=== PATIENT | female | born 1975 | race Caucasian/White ===

== ENCOUNTER 2018-04-15 17:20 | Emergency (ER) | payer BC, SELFPAY ==
[2018-04-15 17:23] VITALS: BMI 26.9
[2018-04-15 17:30] VITALS: BP 129/101; PULSE 86; RESP 19; TEMP 36.6; O2SAT 100
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
[2018-04-15] MEDS: HYDROCODONE/ACET 5/325 TABLET 1 TAB PO (18:24)
--- NOTE | 2018-04-15 18:25 | PC.NURSE ---
last solid meal, had a protein bar at 330pm.
[2018-04-15 18:34] VITALS: BP 130/83; PULSE 74; RESP 19; O2SAT 100
--- NOTE | 2018-04-15 19:12 | DI.RAD.S_ITS ---
PROCEDURE: XR SHOULDER LT 1V INDICATIONS: trans axillary view requested by rads TECHNIQUE: 1 views of the shoulder were acquired. COMPARISON: [facility], CR, XR SHOULDER LT MIN 2V, 04/15/2018, 18:10. FINDINGS: Bones: There is posterior subluxation of humeral head at the glenohumeral joint. No suspicious bony lesions. Visualized ribs appear intact. Soft tissues: No suspicious soft tissue calcifications. IMPRESSION: Posterior subluxation of humeral head. Nonurgent MRI shoulder arthrogram would be helpful to evaluate posterior labral injury and glenohumeral ligament injury. Dictated by: Chyna Coates M.D. on 04/15/2018 at 20:09 Approved by: Chyna Coates M.D. on 04/15/2018 at 20:10
[2018-04-15] MEDS: MORPHINE 4 MG/ML INJ IM (19:22)
--- NOTE | 2018-04-15 20:03 | DI.RAD.S_ITS ---
PROCEDURE: XR SHOULDER LT MIN 2V INDICATIONS: post reduction TECHNIQUE: 3 views of the shoulder were acquired. COMPARISON: [facility], CR, XR SHOULDER LT 1V, 04/15/2018, 19:18. [facility], CR, XR SHOULDER LT MIN 2V, 04/15/2018, 18:10. FINDINGS: Bones: No fractures. Posterior subluxation of the humeral head is reduced. No suspicious bony lesions. Visualized ribs appear intact. Soft tissues: No suspicious soft tissue calcifications. IMPRESSION: Posterior subluxation of humeral head is reduced. In the setting of shoulder instability, labral injury is highly suspected. A nonurgent MR border arthrogram is suggested. Dictated by: Chyna Coates M.D. on 04/15/2018 at 20:58 Approved by: Chyna Coates M.D. on 04/15/2018 at 21:00
[2018-04-15 21:19] VITALS: BP 130/83; PULSE 59; RESP 18; O2SAT 99
[2018-04-15 21:20] VITALS: BP 125/67; PULSE 70; O2SAT 98
== END 2018-04-15 21:22 | disposition home or self-care (01) ==
PROVIDERS: Emergency Provider Emergency Medicine; PCP Nurse Practitioner Family
DX: S43.022A Posterior subluxation of left humerus, initial encounter (principal); V18.2XXA Unspecified pedal cyclist injured in noncollision transport accident in nontraffic accident, initial encounter
CPT/HCPCS: 73020; 73030; 96372; 99283; J2270

== ENCOUNTER → 2018-09-09 10:40 | Outpatient (CLI) | payer BC, SELFPAY ==
--- NOTE | 2018-09-09 | DI.MG.S_ITS ---
BILATERAL DIGITAL SCREENING MAMMOGRAM 3D/2D WITH CAD: 09/09/2018 CLINICAL: Routine screening. Family history of breast cancer. Comparison is made to exam dated: 03/14/2016 mammogram - [facility]. The tissue of both breasts is heterogeneously dense. This may lower the sensitivity of mammography. Current study was also evaluated with a Computer Aided Detection (CAD) system. No significant masses, calcifications, or other findings are seen in either breast. There has been no significant interval change. IMPRESSION: NEGATIVE There is no mammographic evidence of malignancy. A 1 year screening mammogram is recommended. This exam was interpreted at Station ID: [id number]. NOTE: For mammograms, a report in lay terms will be sent to the patient. Approximately 15% of breast malignancies will not be visualized mammographically. In the management of a palpable breast mass, a negative mammogram must not discourage biopsy of a clinically suspicious lesion. Electronically Signed By: Kamilla cordero/maria a:09/09/2018 12:20:56 letter sent: Normal Exam ACR BI-RADS Category 1: Negative [id number]
== END ==
PROVIDERS: PCP Nurse Practitioner Family; Visit Provider Nurse Practitioner Family
DX: Z12.31 Encounter for screening mammogram for malignant neoplasm of breast (principal); Z80.3 Family history of malignant neoplasm of breast
CPT/HCPCS: 77063; 77067

== ENCOUNTER → 2019-09-30 17:35 | Outpatient (CLI) | payer BC, SELFPAY ==
--- NOTE | 2019-09-30 | DI.MG.S_ITS ---
BILATERAL DIGITAL SCREENING MAMMOGRAM 3D/2D WITH CAD: 09/30/2019 CLINICAL: Routine screening. Family history of breast cancer. Comparison is made to exams dated: 09/09/2018 mammogram and 03/14/2016 mammogram - [facility]. The tissue of both breasts is heterogeneously dense. This may lower the sensitivity of mammography. Current study was also evaluated with a Computer Aided Detection (CAD) system. No significant masses, calcifications, or other findings are seen in either breast. There has been no significant interval change. IMPRESSION: NEGATIVE There is no mammographic evidence of malignancy. A 1 year screening mammogram is recommended. This exam was interpreted at Station ID: [id number]. NOTE: For mammograms, a report in lay terms will be sent to the patient. Approximately 15% of breast malignancies will not be visualized mammographically. In the management of a palpable breast mass, a negative mammogram must not discourage biopsy of a clinically suspicious lesion. Electronically Signed By: Александр joshi/maria a:10/01/2019 07:57:43 letter sent: Normal Exam ACR BI-RADS Category 1: Negative [id number]
== END ==
PROVIDERS: PCP Internal Medicine; Referring Provider Internal Medicine; Visit Provider Internal Medicine
DX: Z12.31 Encounter for screening mammogram for malignant neoplasm of breast (principal); Z80.3 Family history of malignant neoplasm of breast
CPT/HCPCS: 77063; 77067

== ENCOUNTER 2021-05-18 08:24 | Emergency (ER) | payer BC, SELFPAY ==
[2021-05-18 08:45] VITALS: BP 169/80; PULSE 83; RESP 18; TEMP 36.8; O2SAT 97; BMI 28.3
--- NOTE | 2021-05-18 09:07 | ED_ITS ---
HPI - Extremity Injury (Lower) General Chief Complaint: Extremity Injury, Lower Stated Complaint: left hip injury, gym accident Time Seen by Provider: 05/18/21 08:31 Source: patient Mode of arrival: Ambulatory History of Present Illness HPI Narrative: 46-year-old female nonsmoker without any chronic medical problems presents with a chief complaint of gradually worsening left hip pain over the past 24 hours or so. She does have a chronic history of low back pain and prior hip pain but it has never been quite this bad. She denies any specific trauma but does state that yesterday she was in a spin class and over the course of the day she developed increasing pain in her hip. She states her pain is severe when she attempts to move her leg but is essentially non-existent when others do. She denies any fever or chills. She denies any ongoing low back pain. She denies any numbness, tingling or weakness. She has no loss of control of bowel or bladder. She has had no fever does not take blood thinners. Related Data Previous Rx's Medication Instructions Recorded cyclobenzaprine 10 mg tablet 10 mg PO TID PRN #14 tab 05/18/21 ketorolac 10 mg tablet 10 mg PO Q6H PRN #14 tab 05/18/21 Allergies Allergy/AdvReac Type Severity Reaction Status Date / Time LISINOPRIL Allergy Severe angioedema Uncoded 05/18/21 08:52 Review of Systems Review of Systems Narrative: GENERAL: Denies chills, fatigue, malaise, fever, sweats. HEENT: Denies sinus pain, ear pain, sore throat, difficulty swallowing, dizziness. RESPIRATORY: Denies dyspnea, cough, wheezing, hemoptysis, sputum. CARDIOVASCULAR: Denies chest pain, palpitations, orthopnea, edema, GASTROINTESTINAL: Denies nausea, vomiting, abdominal pain, diarrhea, constipation, melena. : Denies dysuria, frequency, incontinence, hematuria, urinary retention. MUSCULOSKELETAL: See HPI SKIN: Denies rash, skin lesions, or other NEUROLOGIC: Denies weakness, headache, numbness, change in speech, confusion, seizures, incoordination. PSYCHIATRIC: No concerning psychosocial issues. 12 point review of systems is negative except for those stated above Patient History Medical History Hypertension Surgical History History of esophagogastroduodenoscopy (EGD) Status post tonsillectomy and adenoidectomy Family History Father Age: 67 High cholesterol Mother Age: 66 Hypertension Sister Age: 41 Diabetes mellitus Social History Smoking Status: Never smoker Smoking Status: Never smoker alcohol intake frequency: holidays/special occasions only Substance Use Type: marijuana Exam Narrative Exam Narrative: GENERAL: [46] year old patient appears stated age. Well-developed patient, in mild distress. HEAD: Atraumatic. Normocephalic. EYES: Pupils equal round and reactive. Extraocular motions intact. No scleral icterus. No injection or drainage. ENT: Nose without bleeding, purulent drainage. Throat without erythema, tonsillar hypertrophy or exudate. Airway patent. NECK: Trachea midline. Non tender CARDIOVASCULAR: Regular rate and rhythm without murmurs, gallops, or rubs. RESPIRATORY: Clear to auscultation. Breath sounds equal bilaterally. No wheezes, rales, or rhonchi. GASTROINTESTINAL: Abdomen soft, non-tender, nondistended. EXTREMITIES: Full, painless range of motion at left hip through passive range of motion, no pain with axial loading nor internal or external rotation. No obvious deformity, shortening or external rotation. This is closed, isolated and neurovascularly intact BACK: Nontender without deformity or crepitance. No flank tenderness. No saddle anesthesia, no lower extremity sensory deficit, bilateral lower extremity patellar reflexes 2+ NEURO: AOx3. SKIN: No rash or erythema of visible areas Initial Vital Signs Initial Vital Signs: Vital Signs Temperature 98.2 F 05/18/21 08:45 Pulse Rate 83 05/18/21 08:45 Respiratory Rate 18 05/18/21 08:45 Blood Pressure 169/80 H 05/18/21 08:45 Pulse Oximetry 97 05/18/21 08:45 Course Orders Ordered: ED Orders 05/18/21 09:11 XR hip w pel if done LT 2V Stat Discontinued Medications Ketorolac Tromethamine (Ketorolac 30 Mg/Ml Vial) 30 mg IM NOW ONE Stop: 05/18/21 09:50 Last Admin: 05/18/21 10:03 Dose: 30 mg Documented by: PATRIA Vital Signs Vital signs: Vital Signs - 8 hr 05/18/21 08:45 Temperature 98.2 F Pulse Rate 83 Respiratory Rate 18 Blood Pressure 169/80 H Pulse Oximetry 97 MDM - Extremity Injury (Lower) Imaging Data Hip Xray: Radiologist's Impression: [address] [address] XRay Report Signed Patient: Quintin Collado MR#: [id number] : 1975 Acct:[id number] Age/Sex: 46 / F Date of Service: 05/18/21 Loc: ED Accession Number: [id number] ?? Procedure: XR hip w pel if done LT 2V Ordering Provider: Salas Pyle D.O. PROCEDURE:? XR HIP W PEL IF DONE LT 2V ? INDICATIONS:? hip pain ? TECHNIQUE:? AP pelvis with lateral view(s) of the left hip(s).? ? COMPARISON:? None. ? FINDINGS:? ? Bones:? No fractures or dislocations.? Pelvic ring appears intact.? No suspicious bony lesions.? ? Soft tissues:? The visualized bowel gas pattern is normal.? No suspicious soft tissue calcifications.? Intrauterine device is seen. ? ? IMPRESSION:? No acute left hip fracture or dislocation.? No evidence of avascular necrosis.? ? ? Dictated by: Low Gusman M.D. on 05/18/2021 at 9:25 ? ? Approved by: Low Gusman M.D. on 05/18/2021 at 9:26 ? [facility] Narrative Medical decision making narrative: Patient with history of hip and back pain presents with gradually worsening discomfort in the absence of any specific trauma but did work out yesterday. X- ray is reassuring, there was no trauma, she has very little to no pain with passive range of motion. Fracture, avascular necrosis, the dislocation considered but thought unlikely given history and physical. Most likely a soft tissue injury that should improve over the course of the week. Patient given anti-inflammatories and crutches, importance of follow-up has been stressed. Return precautions discussed and questions answered to her apparent satisfaction Discharge Plan Departure Patient Disposition: Home Clinical Impression: Acute hip pain Instructions: DI for Hip Pain Activity Restrictions/Additional Instructions: *You have been diagnosed with [left hip pain. As we discussed your history, physical exam and Xrays are very reassuring and there is no evidence of fracture or dislocation. Most likely this is a soft tissue injury that should improve over the course of the week with a use of anti-inflammatories and crutches. Please follow closely with her primary care provider *What to do: *Please continue to take your regular medications as directed. [ x] New medication prescriptions sent to your pharmacy: [ [facility]] [ ] New medication written as a paper prescription [ ] No new medications given *Please follow up with your primary care provider in 2-3 days, call for an appointment. Let them know you were seen in the Emergency Department and that we ask that you be seen in follow up. We will electronically transmit a record of today's note if your PCP is in our system * you have been given a short prescription of a medication called Flexeril which will help with spasming muscles. This is not an opioid but still it can make you groggy and you cannot safely drive while taking this medication, use heavy machinery, sign legal documents, mix with alcohol or other sedating substances. *Return to Emergency Department if you should have any new, worsening or concerning symptoms, such as [fever greater than 101 F, shaking chills, worsening pain, persistent vomiting or other bothersome symptoms] Prescriptions: New cyclobenzaprine 10 mg tablet 10 mg PO TID PRN (Reason: muscle spasm) Qty: 14 0RF ketorolac 10 mg tablet 10 mg PO Q6H PRN (Reason: pain) Qty: 14 0RF Referrals: Alisia Curtis ARNP [Primary Care Provider] -
--- NOTE | 2021-05-18 09:11 | DI.RAD.S_ITS ---
PROCEDURE: XR HIP W PEL IF DONE LT 2V INDICATIONS: hip pain TECHNIQUE: AP pelvis with lateral view(s) of the left hip(s). COMPARISON: None. FINDINGS: Bones: No fractures or dislocations. Pelvic ring appears intact. No suspicious bony lesions. Soft tissues: The visualized bowel gas pattern is normal. No suspicious soft tissue calcifications. Intrauterine device is seen. IMPRESSION: No acute left hip fracture or dislocation. No evidence of avascular necrosis. Dictated by: Low Gusman M.D. on 05/18/2021 at 9:25 Approved by: Low Gusman M.D. on 05/18/2021 at 9:26
[2021-05-18] MEDS: KETOROLAC 30 MG/ML VIAL IM (10:03)
== END 2021-05-18 10:31 | disposition home or self-care (01) ==
PROVIDERS: Emergency Provider Emergency Medicine; PCP Internal Medicine
DX: M25.552 Pain in left hip (principal)
CPT/HCPCS: 73502; 96372; 99283; 99284; J1885

== ENCOUNTER → 2021-08-24 16:09 | Outpatient (CLI) | payer BC, SELFPAY ==
--- NOTE | 2021-08-24 16:10 | DI.MRI.S_ITS ---
PROCEDURE: MR LUMBAR SPINE WO CON INDICATIONS: Low back pain, unspecified TECHNIQUE: Noncontrast sagittal T1 spin echo and T2 fast echo, sagittal STIR, and T2 fast spin echo through the lumbar spine. In cases with scoliosis, additional coronal T2 fast spin echo may be performed. COMPARISON: None. FINDINGS: Image quality: Excellent. Alignment and Curvature: There is normal bony alignment. Bone Marrow: Marrow is of normal overall signal. No acute vertebral body compression fractures. Spinal Cord: Conus medullaris terminates at the L1 level. Visualized cord demonstrates normal signal and size. Paraspinous Soft Tissues: No paravertebral masses. T12-L1: Normal appearance. L1-L2: Normal appearance. L2-L3: Mild disc bulge. Mild facet and ligamentum flavum hypertrophy. Mild canal stenosis. No neural foraminal narrowing. L3-L4: Moderate disc desiccation and height loss. Moderate facet and ligamentum flavum hypertrophy. There is a 1.2 x 0.5 by 0.8 cm central disc protrusion which narrows the left lateral recess and results in moderate canal stenosis. There is moderate facet and ligamentum flavum hypertrophy. No right foraminal narrowing. Severe left neural foraminal stenosis. The exiting nerve root abuts the disc protrusion. L4-L5: Normal appearance. L5-S1: Normal appearance. IMPRESSION: 1. L3-4 disc protrusion with resultant narrowing of the left lateral recess, severe left neural foraminal stenosis, probable displacement of the exiting left nerve root and moderate canal stenosis. Dictated by: Jolene Keith M.D. on 08/24/2021 at 16:48 Approved by: Jolene Keith M.D. on 08/24/2021 at 16:51
== END ==
PROVIDERS: PCP Internal Medicine; Referring Provider Internal Medicine; Visit Provider Internal Medicine
DX: M51.26 Other intervertebral disc displacement, lumbar region (principal); M48.061 Spinal stenosis, lumbar region without neurogenic claudication; M25.551 Pain in right hip
CPT/HCPCS: 72148

== ENCOUNTER → 2022-12-23 08:16 | Outpatient (CLI) | payer BC, SELFPAY ==
--- NOTE | 2022-12-23 | DI.MG.S_ITS ---
BILATERAL DIGITAL SCREENING MAMMOGRAM 3D/2D WITH CAD: 12/23/2022 CLINICAL: Routine screening. Family history of breast cancer. Comparison is made to exams dated: 09/30/2019 mammogram, 09/09/2018 mammogram, and 03/14/2016 mammogram - [facility]. There are scattered areas of fibroglandular density in both breasts (category b / 25%-50% glandular tissue). Current study was also evaluated with a Computer Aided Detection (CAD) system. No significant masses, calcifications, or other findings are seen in either breast. IMPRESSION: NEGATIVE There is no mammographic evidence of malignancy. A 1 year screening mammogram is recommended. Based on the Tyrer Cuzick model (a risk assessment model) the patient's lifetime risk is 14.5% and her 10 year risk is 2.8%. According to the ACR, ACS, and NCCN guidelines, an annual breast MRI exam along with mammogram is recommended if the patient's lifetime risk is 20% or greater. This exam was interpreted at Station ID: [id number]. NOTE: For mammograms, a report in lay terms will be sent to the patient. Approximately 15% of breast malignancies will not be visualized mammographically. In the management of a palpable breast mass, a negative mammogram must not discourage biopsy of a clinically suspicious lesion. Electronically Signed By: Elizabeth La M.D., PH.D [email or web address] a:12/23/2022 10:27:25 letter sent: Normal Exam ACR BI-RADS Category 1: Negative [id number]
== END ==
PROVIDERS: PCP Internal Medicine; Referring Provider Internal Medicine; Visit Provider Internal Medicine
DX: Z12.31 Encounter for screening mammogram for malignant neoplasm of breast (principal); Z80.3 Family history of malignant neoplasm of breast
CPT/HCPCS: 77063; 77067

== ENCOUNTER → 2023-06-12 16:52 | Outpatient (CLI) | payer BC, SELFPAY ==
--- NOTE | 2023-06-12 | DI.US.S_ITS ---
PROCEDURE: US THYROID INDICATIONS: ENLARGED THYROID TECHNIQUE: Real-time scanning was performed of the thyroid gland, with image documentation. COMPARISON: None. FINDINGS: Thyroid: Right lobe measures 4.5 x 1.2 x 1.3 cm. Left lobe measures 5 x 1.4 x 1.8 cm. Isthmus is 0.4 cm thick. Echotexture is diffusely heterogeneous. IMPRESSION: Diffusely heterogeneous, mildly prominent sized thyroid, yet without a suspicious nodule. ACR TI-RADS definitions and recommendations: TI-RADS 1 (benign): 0 points. FNA not needed. TI-RADS 2 (not suspicious): 2 points. FNA not needed. TI-RADS 3 (mildly suspicious): 3 points. * FNA if 2.5 cm or larger, follow up if 1.5 cm or larger (at 1, 3, and 5 years). TI-RADS 4 (moderately suspicious): 4-6 points. * FNA if 1.5 cm or larger, follow up if 1 cm or larger (at 1, 2, 3, and 5 years). TI-RADS 5 (highly suspicious): 7 points or more. * FNA if 1 cm or larger, follow up if 0.5 cm or larger (every year for 5 years). Dictated by: Jony Sharma M.D. on 06/12/2023 at 17:31 Approved by: Jony Sharma M.D. on 06/12/2023 at 17:32
== END ==
PROVIDERS: PCP Internal Medicine; Referring Provider Internal Medicine; Visit Provider Internal Medicine
DX: E04.9 Nontoxic goiter, unspecified (principal)
CPT/HCPCS: 76536

== ENCOUNTER → 2024-01-23 08:18 | Outpatient (CLI) | payer BC, SELFPAY ==
--- NOTE | 2024-01-23 08:20 | DI.MG.S_ITS ---
BILATERAL DIGITAL SCREENING MAMMOGRAM 3D/2D WITH CAD: 01/23/2024 CLINICAL: Routine screening. Family history of breast cancer. Comparison is made to exams dated: 12/23/2022 mammogram, 09/30/2019 mammogram, and 09/09/2018 mammogram - [facility]. There are scattered areas of fibroglandular density (category b / 25%-50% glandular tissue). Current study was also evaluated with a Computer Aided Detection (CAD) system. No significant masses, calcifications, or other findings are seen in either breast. There has been no significant interval change. IMPRESSION: NEGATIVE There is no mammographic evidence of malignancy. A 1 year screening mammogram is recommended. Based on the Tyrer Cuzick model (a risk assessment model) the patient's lifetime risk is 14.4% and her 10 year risk is 3.0%. According to the ACR, ACS, and NCCN guidelines, an annual breast MRI exam along with mammogram is recommended if the patient's lifetime risk is 20% or greater. This exam was interpreted at Station ID: [id number]. NOTE: For mammograms, a report in lay terms will be sent to the patient. Approximately 15% of breast malignancies will not be visualized mammographically. In the management of a palpable breast mass, a negative mammogram must not discourage biopsy of a clinically suspicious lesion. Electronically Signed By: Horacio chan/maria a:01/23/2024 12:10:51 letter sent: Normal Exam ACR BI-RADS Category 1: Negative
== END ==
PROVIDERS: PCP Internal Medicine; Referring Provider Internal Medicine; Visit Provider Internal Medicine
DX: Z12.31 Encounter for screening mammogram for malignant neoplasm of breast (principal); Z80.3 Family history of malignant neoplasm of breast
CPT/HCPCS: 77063; 77067